=== PATIENT | female | born 1950 ===

== ENCOUNTER 2022-07-05 15:23 | Inpatient (IN) | payer OTHER ==
[~2022-07-05] VITALS: Ht 160 cm; Wt 48.1 kg
[2022-07-06] MEDS ORDERED: PROTONIX40 MG PO (13:17)
[2022-07-06] MEDS ORDERED: NORVASC5 MG PO (13:18)
[2022-07-06] MEDS ORDERED: ZOCOR40 MG PO (13:18)
[2022-07-06] MEDS ORDERED: PEPCID40 MG PO (13:18)
[2022-07-06] MEDS ORDERED: CLONAZEPAM0.5 M1 PO (13:18)
[2022-07-06] MEDS ORDERED: PLANQUENIL PO (13:19)
[2022-07-06] MEDS ORDERED: AMBIEN10 MG PO (13:19)
[2022-07-13] MEDS ORDERED: HYDROXYCHLOROQ200 MG (09:51)
[2022-07-13] MEDS ORDERED: LEVETIRACETAM500 MG (09:52)
[2022-07-13] MEDS ORDERED: LOSARTAN POTASS25 MG (09:52)
[2022-07-13] MEDS ORDERED: SERTRALINE HCL100 MG (09:52)
[2022-07-13] MEDS ORDERED: ST. JOSEPH ASPI81 M2 (09:52)
[2022-07-13] MEDS ORDERED: HYDROCHLOROTH12.5 MG (09:52)
[2022-07-13] MEDS ORDERED: FLONASE16 GM (09:52)
[2022-07-13] MEDS ORDERED: RAYOS5 MG (09:52)
[2022-07-13] MEDS ORDERED: VITAMIN D310 MC1 (09:52)
[2022-07-13] MEDS ORDERED: RAMIPRIL2.5 MG (09:52)
[2022-07-13] MEDS ORDERED: SULFASALAZINE500 MG (09:52)
== END 2022-07-15 11:12 | disposition home or self-care (01) | DRG 331 ==
LOC: SURH 07-12 05:30 → O/R 07-12 05:30 → SURH 07-12 10:30
PROVIDERS: ADMIT Colon & Rectal Surgery; ATTEND Colon & Rectal Surgery
PROC: 0DBP4ZZ Excision of Rectum, Percutaneous Endoscopic Approach (ICD-10-PCS; 2022-07-12)
PROC: 0WQF4ZZ Repair Abdominal Wall, Percutaneous Endoscopic Approach (ICD-10-PCS; 2022-07-12)
PROC: 0DQE4ZZ Repair Large Intestine, Percutaneous Endoscopic Approach (ICD-10-PCS; 2022-07-12)
PROC: 0DJD8ZZ Inspection of Lower Intestinal Tract, Via Natural or Artificial Opening Endoscopic (ICD-10-PCS; 2022-07-12)
PROC: 3E0F7SF Introduction of Other Gas into Respiratory Tract, Via Natural or Artificial Opening (ICD-10-PCS; 2022-07-12)
PROC: 0DTN4ZZ Resection of Sigmoid Colon, Percutaneous Endoscopic Approach (ICD-10-PCS; principal; 2022-07-12 10:30)
DX: K57.20 Diverticulitis of large intestine with perforation and abscess without bleeding (principal); K43.2 Incisional hernia without obstruction or gangrene; K66.0 Peritoneal adhesions (postprocedural) (postinfection); Z43.3 Encounter for attention to colostomy